=== PATIENT | female | born 1965 | race Two or more races ===

== ENCOUNTER 2017-05-22 19:20 | Emergency (ER) | payer OTHER, SELFPAY ==
[~2017-05-22] VITALS: Ht 144.8 cm; Wt 58.6 kg
[2017-05-22] MEDS ORDERED: ONDANSETRON 2MG/ML, 2ML ONE (19:57)
[2017-05-22] MEDS ORDERED: SODIUM CHLORIDE FLUSH 10ML SYR IVF ONE (20:00)
[2017-05-22] MEDS ORDERED: ONDANSETRON 2MG/ML, 2ML IVPush ONE (20:00)
[2017-05-22] MEDS ORDERED: SODIUM CHLORIDE 0.9% 1,000ML IVBOLUS ONE (20:00)
[2017-05-22 20:13] LABS: ASPARTATE AMINO TRANSFERASE 17 U/L (15-37); BLOOD UREA NITROGEN 12 mg/dL (7-18)
[2017-05-22 23:42] VITALS: BP 122/75
[2017-05-23] MEDS ORDERED: OMNIPAQUE 350 MG/ML, 100ML BOTTLE ONE (06:39)
== END 2017-05-22 23:44 | disposition home or self-care (01) ==
LOC: ED 20:57
DX: N83.201 Unspecified ovarian cyst, right side (principal); R10.84 Generalized abdominal pain; R11.2 Nausea with vomiting, unspecified; Z90.49 Acquired absence of other specified parts of digestive tract
CPT/HCPCS: 36415; 74177; 80053; 81001; 83690; 84703; 85025; 87086; 96361; 96374; 99285; J2405; J7030; Q9967

== ENCOUNTER 2018-04-27 11:37 | Inpatient (IN) | payer OTHER ==
[~2018-04-27] VITALS: Ht 152.4 cm; Wt 55.3 kg
[2018-04-27] MEDS ORDERED: ASPIRIN 81 MG TABLET CHEW PO ONE ×2 (12:00→15:00)
[2018-04-27 12:39] LABS: BASOPHILS # (AUTO) 0.03 x10^3/uL (0-0.1); BASOPHILS % (AUTO) 0 % (0-1); EOSINOPHILS # (AUTO) 0.18 x10^3/uL (0-0.4); EOSINOPHILS % (AUTO) 2 % (1-7); LYMPHOCYTES # (AUTO) 3.16 x10^3/uL (1-3.4); LYMPHOCYTES % (AUTO) 37 % (22-44); MD NO; MEAN CORPUSCULAR HEMOGLOBIN 30.8 pg (27.0-34.8); MEAN CORPUSCULAR HGB CONC 33.9 g/dL (32.4-35.8); MEAN CORPUSCULAR VOLUME 90.9 fL (80-100); MEAN PLATELET VOLUME 8.8 fL (7.4-10.4); MONOCYTES # (AUTO) 0.46 x10^3/uL (0.2-0.8); MONOCYTES % (AUTO) 5 % (2-9); NEUTROPHILS # (AUTO) 4.83 x10^3/uL (1.8-6.8); NEUTROPHILS % (AUTO) 56 % (42-75); PLATELET COUNT 270 x10^3/uL (130-400); RED BLOOD COUNT 3.84 x10^6/uL (3.82-5.3); RED CELL DISTRIBUTION WIDTH 13.6 % (9.6-15.2)
[2018-04-27 12:53] LABS: ANION GAP 6 mmol/L (5-15); CALCIUM 10.2 mg/dL (8.5-10.1); CHLORIDE 105 mmol/L (98-107); CREATININE 0.68 mg/dL (0.55-1.02)
[2018-04-27 12:56] LABS: TROPONIN I 0.058 ng/mL (0.000-0.045)
[2018-04-27] MEDS ORDERED: PROCHLORPERAZINE 5 MG/ML, 2ML IVPush ONE (14:30)
[2018-04-27] MEDS ORDERED: DIPHENHYDRAMINE 50 MG/ML, 1ML IVPush ONE (14:30)
[2018-04-27] MEDS ORDERED: KETOROLAC 30 MG/1 ML IVPush ONE (14:30)
[2018-04-27] MEDS ORDERED: SODIUM CHLORIDE 0.9% 1,000ML IVBOLUS ONE (14:30)
[2018-04-27] MEDS ORDERED: SODIUM CHLORIDE FLUSH 10ML SYR IVF ONE (14:30)
[2018-04-27] MEDS ORDERED: LABETALOL 5MG/ML, 20ML IVPush ONE (15:16)
[2018-04-27] MEDS ORDERED: OMNIPAQUE 350 MG/ML, 100ML BOTTLE ONE (15:45)
[2018-04-27] MEDS ORDERED: DIPHENHYDRAMINE 50 MG/ML, 1ML ONE (16:01)
[2018-04-27] MEDS ORDERED: PROCHLORPERAZINE 5 MG/ML, 2ML ONE (16:01)
[2018-04-27] MEDS ORDERED: DOCUSATE 100 MG CAPSULE PO PRN (17:00)
[2018-04-27] MEDS ORDERED: ENALAPRILAT 1.25 MG/ML, 2ML IVPush PRN (17:00)
[2018-04-27] MEDS ORDERED: LABETALOL 5MG/ML, 20ML IVPush PRN (17:00)
[2018-04-27] MEDS ORDERED: ACETAMINOPHEN 325 MG TABLET PO PRN (17:00)
[2018-04-27] MEDS ORDERED: morphine SULFATE 10 MG/ML, 1ML IVPush PRN (17:00)
[2018-04-27] MEDS ORDERED: METOCLOPRAMIDE 5 MG/ML, 2ML IVPush PRN (17:00)
[2018-04-27] MEDS ORDERED: NITROGLYCERIN 0.4 MG BOTTLE (25 TABS) SL PRN (17:00)
[2018-04-27] MEDS ORDERED: BISACODYL 10 MG SUPP PR PRN (17:00)
[2018-04-27] MEDS ORDERED: ONDANSETRON ODT 4 MG PO PRN (17:00)
[2018-04-27] MEDS ORDERED: POLYETHYLENE GLYCOL 17 GM PACKET PO PRN (17:00)
[2018-04-27] MEDS ORDERED: GADOBUTROL 7.5 MMOL/7.5 ML PFS ONE (17:38)
[2018-04-27 17:53] LABS: TROPONIN I 0.053 ng/mL (0.000-0.045)
[2018-04-27] MEDS: SODIUM CHLORIDE 0.9% 1,000 ML IV SCH (19:00)
[2018-04-27] MEDS: FAMOTIDINE 20 MG TABLET PO SCH (22:09)
[2018-04-27 22:21] VITALS: BP 127/75
[2018-04-27 23:07] LABS: TROPONIN I 0.019 ng/mL (0.000-0.045)
[2018-04-28 03:00] VITALS: BP 131/81
[2018-04-28] MEDS: SODIUM CHLORIDE 0.9% 1,000 ML IV SCH ×2 (05:21→15:00)
[2018-04-28 05:41] LABS: BASOPHILS # (AUTO) 0.01 x10^3/uL (0-0.1); BASOPHILS % (AUTO) 0 % (0-1); EOSINOPHILS # (AUTO) 0.25 x10^3/uL (0-0.4); EOSINOPHILS % (AUTO) 4 % (1-7); LYMPHOCYTES # (AUTO) 2.58 x10^3/uL (1-3.4); LYMPHOCYTES % (AUTO) 37 % (22-44); MD NO; MEAN CORPUSCULAR HEMOGLOBIN 30.2 pg (27.0-34.8); MEAN CORPUSCULAR HGB CONC 33.1 g/dL (32.4-35.8); MEAN CORPUSCULAR VOLUME 91.1 fL (80-100); MEAN PLATELET VOLUME 8.6 fL (7.4-10.4); MONOCYTES # (AUTO) 0.58 x10^3/uL (0.2-0.8); MONOCYTES % (AUTO) 8 % (2-9); NEUTROPHILS # (AUTO) 3.53 x10^3/uL (1.8-6.8); NEUTROPHILS % (AUTO) 51 % (42-75); PLATELET COUNT 217 x10^3/uL (130-400); RED BLOOD COUNT 3.51 x10^6/uL (3.82-5.3); RED CELL DISTRIBUTION WIDTH 14.1 % (9.6-15.2)
[2018-04-28 05:47] LABS: CHLORIDE 109 mmol/L (98-107)
[2018-04-28] MEDS ORDERED: ASPIRIN 325 MG TABLET EC PO SCH (06:00)
[2018-04-28 06:03] LABS: ANION GAP 5 mmol/L (5-15); CALCIUM 8.3 mg/dL (8.5-10.1); CHOL/HDL RATIO 3.9; CHOLESTEROL, TOTAL 133 mg/dL (140-239); CREATININE 0.74 mg/dL (0.55-1.02); HDL CHOLESTEROL (DIRECT) 34 mg/dL (40-60); TRIGLYCERIDES 119 mg/dL (50-200); VLDL CHOLESTEROL 24 mg/dL (0-25)
[2018-04-28 06:04] LABS: HDL CHOL % 26 % (28-40); LDL CHOLESTEROL,CALCULATED 75 mg/dL (54-169); LDL/HDL RATIO 2.2 (0.5-3.0)
[2018-04-28 08:20] VITALS: BP 119/75
[2018-04-28] MEDS ORDERED: REGADENOSON 0.4 MG/5 ML SYRINGE ONE (08:31)
[2018-04-28] MEDS: FAMOTIDINE 20 MG TABLET PO SCH (09:12)
[2018-04-28] MEDS ORDERED: FAMO20TA7 PO (15:24)
[2018-04-28 15:44] VITALS: BP 147/78
== END 2018-04-28 16:59 | disposition home or self-care (01) | DRG 392 ==
LOC: ED 16:20 → EDIP 16:21 → ED 16:35 → 5SO 20:54
PROVIDERS: ADMIT Internal Medicine; ATTEND Internal Medicine
DX: A08.4 Viral intestinal infection, unspecified (principal); G43.C0 Periodic headache syndromes in child or adult, not intractable; E86.0 Dehydration; H53.2 Diplopia; I08.1 Rheumatic disorders of both mitral and tricuspid valves; I10 Essential (primary) hypertension; K76.0 Fatty (change of) liver, not elsewhere classified; M43.17 Spondylolisthesis, lumbosacral region; M47.816 Spondylosis without myelopathy or radiculopathy, lumbar region; G43.909 Migraine, unspecified, not intractable, without status migrainosus; R07.9 Chest pain, unspecified; Z80.3 Family history of malignant neoplasm of breast; Z90.49 Acquired absence of other specified parts of digestive tract
CPT/HCPCS: 0399T; 36415; 70450; 70553; 71046; 71275; 74174; 78452; 80048; 80061; 82040; 83735; 84100; 84443; 84484; 85025; 93005; 93017; 93306; 96361; 96374; 96375; 99285; A9585; J2785; Q9967; A9502; C9898; J0780; J1200; J7030